=== PATIENT | female | born 1975 | race American Indian/Alaskan Native ===

== ENCOUNTER → 2017-03-02 | Outpatient (CLI) | payer MEDICARE, MEDICAID ==
[~2017-03-02] MED LIST: CALC-534 PO; DICL75TA2 PO; HYDR200T PO; LEVO137T3 PO; OMEP-110 PO; RANI150C PO
== END | disposition home or self-care (01) ==
LOC: CFH 13:51
PROVIDERS: ATTEND Registered Nurse Rehabilitation
DX: N63 Unspecified lump in breast (principal)
CPT/HCPCS: 76641; G0204

== ENCOUNTER → 2018-03-03 | Outpatient (CLI) | payer MEDICARE, MEDICAID ==
[~2018-03-03] MED LIST changes: -HYDR200T PO; +HYDR200T72 PO
== END | disposition home or self-care (01) ==
LOC: CFH 10:42
PROVIDERS: ATTEND Chiropractor Independent Medical Examiner
DX: Z12.31 Encounter for screening mammogram for malignant neoplasm of breast (principal)
CPT/HCPCS: 77067